=== PATIENT | male | born 1965 | race Caucasian/White ===

== ENCOUNTER 2018-11-20 07:25 | Emergency (ER) | payer BC, SELFPAY ==
[2018-11-20 07:28] VITALS: BP 130/83; PULSE 87; RESP 17; TEMP 36.8; O2SAT 99; BMI 21.6
--- NOTE | 2018-11-20 07:52 | ED.VISSUMM ---
- ER Visit Summary Date of Service: 11/20/18 Chief Complaint: [Rash] History of Present Illness: The patient is a 53 M [presents to the emergency department with a rash that started 4 days ago. Patient states that initially he developed some discomfort to the right side of his scalp and then subsequently developed an erythematous vesicular rash. Patient believes that it may be shingles. Patient states that he had shingles when he was 16 years old. He denies any new soaps, detergents, or other allergens. Patient denies any visual changes. He denies any eye pain. Patient has not had any fever or recent illness.] Physical Examination: [HEENT-PERRLA, EOMI. Cranial nerves II through XII grossly intact. TMs clear. Mucous membranes moist. No adenopathy. Cardiovascular-regular rate and rhythm without murmur or ectopy Lungs-clear to auscultation, chest wall stable without crepitus or subcu emphysema Abdomen-normoactive bowel sounds, soft, nontender, no rebound or rigidity, no peritoneal signs. Skin exam-patient has a erythematous patchy and vesicular rash involving the right scalp that does not cross the midline. Patient has lesions onto the right eyebrow and just some minimal erythema to the upper eyelid. No dendritic lesions noted on the cornea. Extremities-intact ?4, normal range of motion, normal pulses, atraumatic] Test Results: [Right eye was stained with floor seen and no dendritic lesions noted.] Emergency Department Course and Treatment: [] Treatment Plan: [Patient will be started on Famvir as well as prednisone. Patient advised to follow-up with his campground caretaker within the next 3 to 5 days. Patient to return if severe eye pain, visual changes, or condition should worsen anyway.] Disposition: [Discharged home in stable condition.] Impression: [Herpes zoster right scalp] This note was generated with [employer] dictation software. It may contain incorrect words, spelling, and punctuation that were not noted in review of the chart prior to signing ED Disposition - Plan for ED Patient: Referrals: Benito Bettencourt MD [Primary Care Provider] -
--- NOTE | 2018-11-20 07:55 | ED.DEP ---
ED Disposition - Plan for ED Patient: Instructions: Shingles (Herpes Zoster) Prescriptions: Prednisone [Deltasone] 20 mg PO BID #10 tab Prescription Printed Famciclovir [Famvir] 500 mg PO TID #21 tab Prescription Printed Referrals: Benito Bettencourt MD [Primary Care Provider] - 5-7 Days Milind Shah MD [STAFF PHYSICIAN] - 3-5 Days
== END 2018-11-20 08:16 | disposition home or self-care (01) ==
PROVIDERS: Emergency Provider Emergency Medicine; Family Provider Family Medicine; PCP Family Medicine
DX: B02.9 Zoster without complications (principal)
CPT/HCPCS: 99282